=== PATIENT | male | born 1960 ===

== ENCOUNTER 2024-05-23 08:13 | Outpatient (BNV) | payer OTHER, SELFPAY | END 2024-05-27 15:19 | PROVIDERS: Admitting Provider Psychiatry & Neurology Psychiatry; Visit Provider Radiology Diagnostic Radiology | DX: F25.9 Schizoaffective disorder, unspecified (principal) | CPT/HCPCS: 70450 ==

== ENCOUNTER 2024-05-23 08:13 | Inpatient (IN) | payer OTHER, SELFPAY ==
--- NOTE | 2024-05-23 | ECG_ITS ---
Test Reason : monitor qtc Blood Pressure : */* mmHG Vent. Rate : 82 BPM Atrial Rate : 82 BPM P-R Int : 88 ms QRS Dur : 104 ms QT Int : 410 ms P-R-T Axes : 32 -34 57 degrees QTcB Int : 479 ms Sinus rhythm with sinus arrhythmia with short CT Left axis deviation Possible Inferior infarct , age undetermined Abnormal ECG No previous ECGs available Referred By: Shaun Mckeon Electronically Signed By: Colby Vigil
--- NOTE | ~2024-05-23 | CT_ITS ---
EXAMINATION: CT HEAD WITHOUT CONTRAST CLINICAL INFORMATION: Memory changes. COMPARISON: None available. TECHNIQUE: Contiguous axial imaging was performed from the skull base to vertex without intravenous administration of contrast. This CT examination was performed using dose optimization techniques as appropriate, variously including the following: *Automated exposure control *Adjustment of mA and/or kV according to patient size (this includes techniques or standardized protocols for targeted exams where dose is matched to indication/reason for exam; i.e. extremities or head) *Use of iterative reconstruction technique FINDINGS: There is no evidence of intracranial hemorrhage or extra-axial fluid collection. There is no mass effect, or edema. No CT evidence of acute territorial infarct. Ventricles, sulci, and cisterns are normal in size and configuration for patient age. No hydrocephalus. No midline shift. Negative hyperdense MCA sign. Negative insular ribbon sign. Patchy periventricular and deep white matter hypoattenuation is consistent with mild to moderate small vessel ischemic changes. Old lacunar type infarcts are present bilateral anterior gangliocapsular regions. Normal pituitary. Mild atheromatous calcification of the bilateral carotid siphons and V4 segments vertebral arteries bilaterally. Globes and orbital contents image normally. No extracranial soft tissue abnormalities. The paranasal sinuses, mastoid air cells, and tympanic cavities are normally aerated. No suspicious bony abnormalities. There are no acute fractures evident. CT/CT head/brain wo IV con IMPRESSION: No acute intracranial abnormalities. Chronic changes as discussed. Electronically signed by: Robbie Francisco MD 05/27/2024 04:01 PM [facility]
[2024-05-23 09:21] VITALS: BMI 19.5
--- NOTE | 2024-05-23 10:19 | PHA.MEDREC ---
Pharmacy Consult ? Medication Reconciliation Pharmacy has completed the medication reconciliation. Utilized med list from rehab center to complete med list.
[2024-05-23 10:55] LABS: Alanine Aminotransferase 16 U/L (0-40); Albumin Level 3.9 g/dL (3.5-5.0); Alkaline Phosphatase 105 U/L (39-117); Anion Gap 11 (12-20); Aspartate Amino Transferase 19 U/L (5-37); Bilirubin Total 0.2 mg/dL (0.0-1.0); Blood Urea Nitrogen 15 mg/dL (9-16); Calcium 9.8 mg/dL (8.4-10.2); Carbon Dioxide 26 mmol/L (22-29); Chloride 105 mmol/L (96-108); Cholesterol 133 mg/dL (<200); Creatinine Clr Calc Pharmacy 82.3; Estimated Glomerular Filt Rate > 60; Glucose Random 150 mg/dL (60-115); HDL Cholesterol 57 mg/dL (>40); LDL Cholesterol Calculated 64 mg/dL (<100); Potassium 4.3 mmol/L (3.3-5.1); Sodium 138 mmol/L (135-145); Total Protein 8.5 g/dL (6.5-8.0); Triglycerides 60 mg/dL (<150)
[2024-05-23 11:04] LABS: TSH reflex Free T4 1.07 uIU/mL (0.32-4.0)
[2024-05-23 11:20] LABS: Estimated Average Glucose 192 mg/dL; Hemoglobin A1C 199.7533 umol/L; Hemoglobin A1c % 8.3 % (<6.0); Total Hemoglobin (HGBA1C) 2978.2807 umol/L
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
[2024-05-23 17:31] LABS: Glucose, Whole Blood 313 mg/dL (60-115)
[2024-05-23] MEDS: Insulin Lispro 100 UNIT/ML 3 ML VIAL SUBCUT ×2 (17:46→21:46)
[2024-05-23 19:46] VITALS: BP 169/77; PULSE 97; RESP 16; TEMP 36.9; O2SAT 100
[2024-05-23 20:43] LABS: Glucose, Whole Blood 213 mg/dL (60-115)
[2024-05-23] MEDS: risperiDONE 1 MG TABLET PO (21:32)
[2024-05-23] MEDS: SITagliptin Phosphate 50 MG TABLET PO (21:32)
[2024-05-23] MEDS: Gabapentin 300 MG CAPSULE 600 MG PO (21:32)
[2024-05-23] MEDS: Mirtazapine 7.5 MG TABLET PO (21:32)
[2024-05-23] MEDS: cilostazoL 100 MG TABLET PO (21:33)
[2024-05-23] MEDS: metFORMIN HCl 1,000 MG TABLET 1000 MG PO (21:33)
[2024-05-23] MEDS: Docusate Sodium 100 MG CAPSULE PO (21:33)
[2024-05-23] MEDS: traZODone HCL 50 MG TABLET 250 MG PO (21:33)
[2024-05-24 08:17] LABS: Glucose, Whole Blood 204 mg/dL (60-115)
[2024-05-24 08:24] VITALS: BP 126/70; PULSE 79; TEMP 36.4; O2SAT 100
[2024-05-24] MEDS: Insulin Lispro 100 UNIT/ML 3 ML VIAL SUBCUT ×4 (08:30→20:28)
[2024-05-24] MEDS: Insulin Glargine,Hum.rec.anlog 100 UNIT/ML 10 ML VIAL 10 UNIT SUBCUT (08:30)
[2024-05-24] MEDS: Empagliflozin 25 MG TABLET PO (09:11)
[2024-05-24] MEDS: cilostazoL 100 MG TABLET PO ×2 (09:11→19:51)
[2024-05-24] MEDS: Gabapentin 300 MG CAPSULE PO (09:11)
[2024-05-24] MEDS: Sennosides 8.6 MG TABLET 17.2 MG PO (09:11)
[2024-05-24] MEDS: risperiDONE 1 MG TABLET PO ×2 (09:11→19:50)
[2024-05-24] MEDS: Atorvastatin Calcium 40 MG TABLET PO (09:11)
[2024-05-24] MEDS: metFORMIN HCl 1,000 MG TABLET 1000 MG PO ×2 (09:11→19:52)
[2024-05-24] MEDS: SITagliptin Phosphate 50 MG TABLET PO ×2 (09:11→19:51)
[2024-05-24] MEDS: polyethylene glycoL 3350 17 GM POWD.PACK PO (09:11)
[2024-05-24] MEDS: Docusate Sodium 100 MG CAPSULE PO ×2 (09:12→19:52)
[2024-05-24] MEDS: traZODone HCL 50 MG TABLET PO (09:54)
[2024-05-24] MEDS: glipiZIDE 5 MG TABLET PO (09:59)
[2024-05-24 11:43] LABS: Glucose, Whole Blood 264 mg/dL (60-115)
--- NOTE | 2024-05-24 13:36 | PC.NURSE ---
Pt transferred from M5 to S1, and arrived on the unit at 1330 via wheelchair. Pt is calm and cooperative. Skin check completed and nothing remarkable was observed.
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
[2024-05-24 16:40] LABS: Glucose, Whole Blood 156 mg/dL (60-115)
[2024-05-24] MEDS: Omeprazole 20 MG CAPSULE.DR PO (17:10)
[2024-05-24 19:02] VITALS: BP 133/76; PULSE 79; TEMP 36.6; O2SAT 100
[2024-05-24] MEDS: traZODone HCL 50 MG TABLET 250 MG PO (19:50)
[2024-05-24] MEDS: Gabapentin 300 MG CAPSULE 600 MG PO (19:51)
[2024-05-24] MEDS: Mirtazapine 7.5 MG TABLET PO (19:51)
[2024-05-24 20:10] LABS: Glucose, Whole Blood 251 mg/dL (60-115)
[2024-05-25 06:49] LABS: Glucose, Whole Blood 101 mg/dL (60-115)
--- NOTE | 2024-05-25 07:10 | PC.NURSE ---
Patient slept through the night, no distress observed/reported, meds and meals compliant, 5 minutes safety check, no behavior and safety concerns, will continue to monitor
[2024-05-25 08:00] VITALS: BP 144/68; PULSE 85; RESP 18; TEMP 36.4; O2SAT 100
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
[2024-05-25] MEDS: cilostazoL 100 MG TABLET PO ×2 (08:23→20:37)
[2024-05-25] MEDS: Sennosides 8.6 MG TABLET 17.2 MG PO (08:23)
[2024-05-25] MEDS: traZODone HCL 50 MG TABLET PO (08:24)
[2024-05-25] MEDS: Atorvastatin Calcium 40 MG TABLET PO (08:25)
[2024-05-25] MEDS: glipiZIDE 5 MG TABLET PO (08:25)
[2024-05-25] MEDS: metFORMIN HCl 1,000 MG TABLET 1000 MG PO ×2 (08:25→20:37)
[2024-05-25] MEDS: Empagliflozin 25 MG TABLET PO (08:25)
[2024-05-25] MEDS: risperiDONE 1 MG TABLET PO ×2 (08:25→20:37)
[2024-05-25] MEDS: Docusate Sodium 100 MG CAPSULE PO ×2 (08:25→20:44)
[2024-05-25] MEDS: Gabapentin 300 MG CAPSULE PO (08:25)
[2024-05-25] MEDS: SITagliptin Phosphate 50 MG TABLET PO ×2 (08:25→20:37)
[2024-05-25] MEDS: polyethylene glycoL 3350 17 GM POWD.PACK PO (08:27)
[2024-05-25] MEDS: Insulin Glargine,Hum.rec.anlog 100 UNIT/ML 10 ML VIAL 10 UNIT SUBCUT (08:55)
[2024-05-25 11:43] LABS: Glucose, Whole Blood 145 mg/dL (60-115)
[2024-05-25 16:15] LABS: Glucose, Whole Blood 177 mg/dL (60-115)
[2024-05-25] MEDS: Insulin Lispro 100 UNIT/ML 3 ML VIAL SUBCUT (16:18)
[2024-05-25 20:33] VITALS: BP 152/75; PULSE 81; RESP 16; TEMP 36.9; O2SAT 99
[2024-05-25] MEDS: Gabapentin 300 MG CAPSULE 600 MG PO (20:37)
[2024-05-25] MEDS: Mirtazapine 7.5 MG TABLET PO (20:37)
[2024-05-25 20:42] LABS: Glucose, Whole Blood 126 mg/dL (60-115)
[2024-05-25] MEDS: traZODone HCL 50 MG TABLET 250 MG PO (20:44)
[2024-05-26 06:41] LABS: Glucose, Whole Blood 126 mg/dL (60-115)
[2024-05-26] MEDS: Insulin Glargine,Hum.rec.anlog 100 UNIT/ML 10 ML VIAL 10 UNIT SUBCUT (08:59)
[2024-05-26] MEDS: Empagliflozin 25 MG TABLET PO (09:01)
[2024-05-26] MEDS: glipiZIDE 5 MG TABLET PO (09:01)
[2024-05-26] MEDS: metFORMIN HCl 1,000 MG TABLET 1000 MG PO ×2 (09:01→20:09)
[2024-05-26] MEDS: Gabapentin 300 MG CAPSULE PO (09:01)
[2024-05-26] MEDS: Sennosides 8.6 MG TABLET 17.2 MG PO (09:02)
[2024-05-26] MEDS: cilostazoL 100 MG TABLET PO ×2 (09:02→20:08)
[2024-05-26] MEDS: Docusate Sodium 100 MG CAPSULE PO ×2 (09:02→20:08)
[2024-05-26] MEDS: SITagliptin Phosphate 50 MG TABLET PO ×2 (09:02→20:09)
[2024-05-26] MEDS: risperiDONE 1 MG TABLET PO ×2 (09:03→20:08)
[2024-05-26] MEDS: traZODone HCL 50 MG TABLET PO (09:03)
[2024-05-26] MEDS: Atorvastatin Calcium 40 MG TABLET PO (09:03)
[2024-05-26 09:04] VITALS: BP 127/68; PULSE 95; RESP 18; TEMP 36.4; O2SAT 100
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
[2024-05-26 11:15] LABS: Glucose, Whole Blood 222 mg/dL (60-115)
[2024-05-26] MEDS: Insulin Lispro 100 UNIT/ML 3 ML VIAL SUBCUT ×2 (11:51→16:33)
[2024-05-26 16:24] LABS: Glucose, Whole Blood 165 mg/dL (60-115)
[2024-05-26 20:00] VITALS: BP 155/71; PULSE 74; RESP 18; TEMP 36; O2SAT 100
[2024-05-26 20:08] LABS: Glucose, Whole Blood 145 mg/dL (60-115)
[2024-05-26] MEDS: traZODone HCL 50 MG TABLET 250 MG PO (20:08)
[2024-05-26] MEDS: Gabapentin 300 MG CAPSULE 600 MG PO (20:08)
[2024-05-26] MEDS: Mirtazapine 7.5 MG TABLET PO (20:09)
[2024-05-27 06:43] LABS: Glucose, Whole Blood 112 mg/dL (60-115)
[2024-05-27] MEDS: Omeprazole 20 MG CAPSULE.DR PO (06:55)
[2024-05-27 08:00] VITALS: BP 123/58; PULSE 82; RESP 16; TEMP 36.2; O2SAT 99
[2024-05-27] MEDS: polyethylene glycoL 3350 17 GM POWD.PACK PO (09:01)
[2024-05-27] MEDS: Gabapentin 300 MG CAPSULE PO (09:01)
[2024-05-27] MEDS: glipiZIDE 5 MG TABLET PO (09:02)
[2024-05-27] MEDS: Atorvastatin Calcium 40 MG TABLET PO (09:02)
[2024-05-27] MEDS: Empagliflozin 25 MG TABLET PO (09:02)
[2024-05-27] MEDS: cilostazoL 100 MG TABLET PO ×2 (09:02→21:06)
[2024-05-27] MEDS: Sennosides 8.6 MG TABLET 17.2 MG PO (09:02)
[2024-05-27] MEDS: risperiDONE 1 MG TABLET PO (09:02)
[2024-05-27] MEDS: metFORMIN HCl 1,000 MG TABLET 1000 MG PO ×2 (09:02→21:07)
[2024-05-27] MEDS: SITagliptin Phosphate 50 MG TABLET PO ×2 (09:02→21:05)
[2024-05-27] MEDS: Docusate Sodium 100 MG CAPSULE PO ×2 (09:02→21:06)
[2024-05-27] MEDS: traZODone HCL 50 MG TABLET PO (09:02)
[2024-05-27] MEDS: Insulin Glargine,Hum.rec.anlog 100 UNIT/ML 10 ML VIAL 10 UNIT SUBCUT (09:02)
[2024-05-27 11:39] LABS: Glucose, Whole Blood 203 mg/dL (60-115)
[2024-05-27] MEDS: Insulin Lispro 100 UNIT/ML 3 ML VIAL SUBCUT ×2 (11:48→21:08)
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
[2024-05-27 14:35] LABS: Iron 18 mcg/dL (45-160); Percent Iron Saturation 6 % (15-50); Total Iron Binding Capacity 286 mcg/dL (228-428); Unsaturated Iron Binding 268 ug/dL
[2024-05-27 16:48] LABS: Glucose, Whole Blood 116 mg/dL (60-115)
[2024-05-27 20:00] VITALS: BP 163/79; PULSE 77; RESP 16; TEMP 36.6; O2SAT 16
[2024-05-27] MEDS: Mirtazapine 7.5 MG TABLET PO (21:04)
[2024-05-27] MEDS: Gabapentin 300 MG CAPSULE 600 MG PO (21:04)
[2024-05-27] MEDS: traZODone HCL 100 MG TABLET PO (21:04)
[2024-05-27 21:06] LABS: Glucose, Whole Blood 228 mg/dL (60-115)
[2024-05-27] MEDS: risperiDONE 2 MG TABLET PO (21:58)
[2024-05-27] MEDS: LORazepam 1 MG TABLET PO (22:35)
[2024-05-27] MEDS: HaloperidoL 5 MG TABLET PO (22:35)
[2024-05-28 06:54] LABS: Glucose, Whole Blood 122 mg/dL (60-115)
[2024-05-28 08:00] VITALS: BP 153/68; PULSE 81; RESP 17; TEMP 36.2; O2SAT 98
[2024-05-28] MEDS: cilostazoL 100 MG TABLET PO ×2 (08:23→20:20)
[2024-05-28] MEDS: Docusate Sodium 100 MG CAPSULE PO ×2 (08:23→20:21)
[2024-05-28] MEDS: Empagliflozin 25 MG TABLET PO (08:23)
[2024-05-28] MEDS: polyethylene glycoL 3350 17 GM POWD.PACK PO (08:23)
[2024-05-28] MEDS: glipiZIDE 5 MG TABLET PO (08:23)
[2024-05-28] MEDS: metFORMIN HCl 1,000 MG TABLET 1000 MG PO ×2 (08:23→20:20)
[2024-05-28] MEDS: SITagliptin Phosphate 50 MG TABLET PO ×2 (08:23→20:20)
[2024-05-28] MEDS: risperiDONE 2 MG TABLET PO ×2 (08:23→20:20)
[2024-05-28] MEDS: Gabapentin 300 MG CAPSULE PO (08:23)
[2024-05-28] MEDS: Sennosides 8.6 MG TABLET 17.2 MG PO (08:23)
[2024-05-28] MEDS: Atorvastatin Calcium 40 MG TABLET PO (08:23)
[2024-05-28] MEDS: Insulin Glargine,Hum.rec.anlog 100 UNIT/ML 10 ML VIAL 10 UNIT SUBCUT (08:24)
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
[2024-05-28 11:41] LABS: Glucose, Whole Blood 226 mg/dL (60-115)
[2024-05-28] MEDS: Insulin Lispro 100 UNIT/ML 3 ML VIAL SUBCUT ×2 (11:54→20:19)
[2024-05-28 16:08] LABS: Glucose, Whole Blood 121 mg/dL (60-115)
[2024-05-28 19:55] LABS: Glucose, Whole Blood 245 mg/dL (60-115)
[2024-05-28 20:00] VITALS: BP 150/76; PULSE 96; TEMP 36.6; O2SAT 100
[2024-05-28] MEDS: Gabapentin 300 MG CAPSULE 600 MG PO (20:20)
[2024-05-28] MEDS: traZODone HCL 100 MG TABLET PO (20:20)
[2024-05-29] MEDS: Omeprazole 20 MG CAPSULE.DR PO (05:09)
[2024-05-29 06:38] LABS: Glucose, Whole Blood 95 mg/dL (60-115)
[2024-05-29] MEDS: Empagliflozin 25 MG TABLET PO (08:11)
[2024-05-29] MEDS: Atorvastatin Calcium 40 MG TABLET PO (08:11)
[2024-05-29] MEDS: SITagliptin Phosphate 50 MG TABLET PO ×2 (08:11→20:01)
[2024-05-29] MEDS: metFORMIN HCl 1,000 MG TABLET 1000 MG PO ×2 (08:11→20:01)
[2024-05-29] MEDS: polyethylene glycoL 3350 17 GM POWD.PACK PO (08:11)
[2024-05-29] MEDS: Sennosides 8.6 MG TABLET 17.2 MG PO (08:11)
[2024-05-29] MEDS: glipiZIDE 5 MG TABLET PO (08:11)
[2024-05-29] MEDS: Docusate Sodium 100 MG CAPSULE PO ×2 (08:11→20:01)
[2024-05-29] MEDS: risperiDONE 2 MG TABLET PO ×2 (08:11→20:01)
[2024-05-29] MEDS: Gabapentin 300 MG CAPSULE PO (08:11)
[2024-05-29] MEDS: Insulin Glargine,Hum.rec.anlog 100 UNIT/ML 10 ML VIAL 10 UNIT SUBCUT (08:14)
[2024-05-29] MEDS: cilostazoL 100 MG TABLET PO ×2 (08:16→20:01)
[2024-05-29 08:18] VITALS: BP 140/76; PULSE 76; RESP 16; TEMP 36.6; O2SAT 96
[2024-05-29 11:22] LABS: Glucose, Whole Blood 85 mg/dL (60-115)
[2024-05-29 16:37] LABS: Glucose, Whole Blood 175 mg/dL (60-115)
[2024-05-29] MEDS: Insulin Lispro 100 UNIT/ML 3 ML VIAL SUBCUT (16:41)
[2024-05-29] MEDS: Gabapentin 300 MG CAPSULE 600 MG PO (20:01)
[2024-05-29] MEDS: traZODone HCL 100 MG TABLET PO (20:01)
[2024-05-29 20:03] LABS: Glucose, Whole Blood 141 mg/dL (60-115)
[2024-05-29 23:13] VITALS: BP 149/72; PULSE 77; RESP 16; TEMP 36.4; O2SAT 100
[2024-05-30 06:42] LABS: Glucose, Whole Blood 66 mg/dL (60-115)
[2024-05-30 06:59] LABS: Glucose, Whole Blood 97 mg/dL (60-115)
[2024-05-30 08:54] VITALS: BP 139/68; PULSE 80; RESP 20; TEMP 36.5; O2SAT 100
[2024-05-30] MEDS: metFORMIN HCl 1,000 MG TABLET 1000 MG PO ×2 (08:59→20:23)
[2024-05-30] MEDS: Sennosides 8.6 MG TABLET 17.2 MG PO (09:00)
[2024-05-30] MEDS: SITagliptin Phosphate 50 MG TABLET PO ×2 (09:00→20:23)
[2024-05-30] MEDS: glipiZIDE 5 MG TABLET PO (09:00)
[2024-05-30] MEDS: risperiDONE 2 MG TABLET PO ×2 (09:00→20:23)
[2024-05-30] MEDS: Docusate Sodium 100 MG CAPSULE PO ×2 (09:02→20:23)
[2024-05-30] MEDS: Gabapentin 300 MG CAPSULE PO (09:03)
[2024-05-30] MEDS: Empagliflozin 25 MG TABLET PO (09:03)
[2024-05-30] MEDS: Insulin Glargine,Hum.rec.anlog 100 UNIT/ML 10 ML VIAL 10 UNIT SUBCUT (09:04)
[2024-05-30] MEDS: polyethylene glycoL 3350 17 GM POWD.PACK PO (09:05)
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
[2024-05-30 10:15] LABS: Creatinine Clr Calc Pharmacy 78.5; Estimated Glomerular Filt Rate > 60
[2024-05-30] MEDS: Atorvastatin Calcium 40 MG TABLET PO (10:19)
[2024-05-30] MEDS: cilostazoL 100 MG TABLET PO ×2 (10:19→20:23)
[2024-05-30 11:16] LABS: Glucose, Whole Blood 180 mg/dL (60-115)
[2024-05-30] MEDS: Insulin Lispro 100 UNIT/ML 3 ML VIAL SUBCUT ×3 (11:18→20:24)
[2024-05-30 14:25] VITALS: BMI 19.1
[2024-05-30 16:35] LABS: Glucose, Whole Blood 161 mg/dL (60-115)
[2024-05-30 19:35] VITALS: BP 160/110; PULSE 96; TEMP 35.3; O2SAT 100
[2024-05-30 20:00] VITALS: BP 169/74; PULSE 83
[2024-05-30 20:00] LABS: Glucose, Whole Blood 264 mg/dL (60-115)
[2024-05-30] MEDS: Gabapentin 300 MG CAPSULE 600 MG PO (20:23)
[2024-05-30] MEDS: traZODone HCL 100 MG TABLET PO (20:23)
[2024-05-30] MEDS: OLANZapine 2.5 MG TABLET PO (22:48)
[2024-05-31] MEDS: Omeprazole 20 MG CAPSULE.DR PO (05:40)
[2024-05-31 06:46] LABS: Glucose, Whole Blood 122 mg/dL (60-115)
[2024-05-31 08:24] VITALS: BP 120/57; PULSE 81; RESP 18; TEMP 36.9; O2SAT 100
[2024-05-31] MEDS: Sennosides 8.6 MG TABLET 17.2 MG PO (08:27)
[2024-05-31] MEDS: cilostazoL 100 MG TABLET PO ×2 (08:28→22:35)
[2024-05-31] MEDS: polyethylene glycoL 3350 17 GM POWD.PACK PO (08:28)
[2024-05-31] MEDS: Atorvastatin Calcium 40 MG TABLET PO (08:28)
[2024-05-31] MEDS: metFORMIN HCl 1,000 MG TABLET 1000 MG PO ×2 (08:28→22:38)
[2024-05-31] MEDS: risperiDONE 2 MG TABLET PO ×2 (08:28→22:38)
[2024-05-31] MEDS: Gabapentin 300 MG CAPSULE PO (08:28)
[2024-05-31] MEDS: Docusate Sodium 100 MG CAPSULE PO ×2 (08:28→22:35)
[2024-05-31] MEDS: Empagliflozin 25 MG TABLET PO (08:28)
[2024-05-31] MEDS: SITagliptin Phosphate 50 MG TABLET PO ×2 (08:28→22:39)
[2024-05-31] MEDS: glipiZIDE 5 MG TABLET PO (08:28)
[2024-05-31] MEDS: Insulin Glargine,Hum.rec.anlog 100 UNIT/ML 10 ML VIAL 10 UNIT SUBCUT (08:28)
[2024-05-31 11:13] LABS: Glucose, Whole Blood 247 mg/dL (60-115)
[2024-05-31] MEDS: Insulin Lispro 100 UNIT/ML 3 ML VIAL SUBCUT ×2 (11:36→22:37)
[2024-05-31 16:18] LABS: Glucose, Whole Blood 111 mg/dL (60-115)
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
[2024-05-31 20:00] VITALS: BP 147/71; PULSE 80; RESP 16; TEMP 36; O2SAT 98
[2024-05-31 22:28] LABS: Glucose, Whole Blood 209 mg/dL (60-115)
[2024-05-31] MEDS: Gabapentin 300 MG CAPSULE 600 MG PO (22:35)
[2024-05-31] MEDS: HaloperidoL 5 MG TABLET PO (22:36)
[2024-05-31] MEDS: LORazepam 1 MG TABLET PO (22:38)
[2024-05-31] MEDS: traZODone HCL 100 MG TABLET PO (22:41)
[2024-06-01 06:43] LABS: Glucose, Whole Blood 108 mg/dL (60-115)
[2024-06-01 08:00] VITALS: BP 124/60; PULSE 87; RESP 18; TEMP 36.5; O2SAT 99
[2024-06-01] MEDS: Empagliflozin 25 MG TABLET PO (08:35)
[2024-06-01] MEDS: Atorvastatin Calcium 40 MG TABLET PO (08:36)
[2024-06-01] MEDS: Insulin Glargine,Hum.rec.anlog 100 UNIT/ML 10 ML VIAL 10 UNIT SUBCUT (08:36)
[2024-06-01] MEDS: Docusate Sodium 100 MG CAPSULE PO ×2 (08:37→20:28)
[2024-06-01] MEDS: glipiZIDE 5 MG TABLET PO (08:37)
[2024-06-01] MEDS: Sennosides 8.6 MG TABLET 17.2 MG PO (08:38)
[2024-06-01] MEDS: risperiDONE 2 MG TABLET PO ×2 (08:39→20:29)
[2024-06-01] MEDS: cilostazoL 100 MG TABLET PO ×2 (08:39→20:29)
[2024-06-01] MEDS: metFORMIN HCl 1,000 MG TABLET 1000 MG PO ×2 (08:40→20:29)
[2024-06-01] MEDS: SITagliptin Phosphate 50 MG TABLET PO ×2 (08:40→20:29)
[2024-06-01] MEDS: Acetaminophen 325 MG TABLET 650 MG PO (08:41)
[2024-06-01] MEDS: Gabapentin 300 MG CAPSULE PO (08:45)
[2024-06-01] MEDS: polyethylene glycoL 3350 17 GM POWD.PACK PO (08:46)
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
[2024-06-01 11:37] LABS: Glucose, Whole Blood 175 mg/dL (60-115)
[2024-06-01] MEDS: Insulin Lispro 100 UNIT/ML 3 ML VIAL SUBCUT ×3 (11:45→20:36)
[2024-06-01] MEDS: Lipase/Prot/Amylase 12/38/60K CAPSULE.DR 1 CAP PO (16:43)
[2024-06-01 20:00] VITALS: BP 160/76; PULSE 81; RESP 16; TEMP 36.6; O2SAT 98
[2024-06-01 20:14] LABS: Glucose, Whole Blood 169 mg/dL (60-115)
[2024-06-01] MEDS: Gabapentin 300 MG CAPSULE 600 MG PO (20:28)
[2024-06-01] MEDS: traZODone HCL 100 MG TABLET PO (20:29)
[2024-06-01] MEDS: LORazepam 1 MG TABLET PO (20:29)
[2024-06-01] MEDS: HaloperidoL 5 MG TABLET PO (20:29)
[2024-06-01 21:16] LABS: Glucose, Whole Blood 157 mg/dL (60-115)
[2024-06-02 07:00] LABS: Glucose, Whole Blood 96 mg/dL (60-115)
[2024-06-02 08:00] VITALS: BP 111/65; PULSE 65; RESP 18; TEMP 36.7; O2SAT 99
[2024-06-02] MEDS: Atorvastatin Calcium 40 MG TABLET PO (08:15)
[2024-06-02] MEDS: cilostazoL 100 MG TABLET PO ×2 (08:15→20:50)
[2024-06-02] MEDS: metFORMIN HCl 1,000 MG TABLET 1000 MG PO ×2 (08:15→20:50)
[2024-06-02] MEDS: Gabapentin 300 MG CAPSULE PO (08:15)
[2024-06-02] MEDS: risperiDONE 2 MG TABLET PO ×2 (08:15→20:49)
[2024-06-02] MEDS: glipiZIDE 5 MG TABLET PO (08:16)
[2024-06-02] MEDS: Docusate Sodium 100 MG CAPSULE PO ×2 (08:16→20:49)
[2024-06-02] MEDS: Lipase/Prot/Amylase 12/38/60K CAPSULE.DR 1 CAP PO ×3 (08:16→16:59)
[2024-06-02] MEDS: Empagliflozin 25 MG TABLET PO (08:16)
[2024-06-02] MEDS: SITagliptin Phosphate 50 MG TABLET PO ×2 (08:16→20:49)
[2024-06-02] MEDS: Insulin Glargine,Hum.rec.anlog 100 UNIT/ML 10 ML VIAL 10 UNIT SUBCUT (08:17)
[2024-06-02] MEDS: Sennosides 8.6 MG TABLET 17.2 MG PO (08:17)
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
[2024-06-02 11:33] LABS: Glucose, Whole Blood 165 mg/dL (60-115)
[2024-06-02] MEDS: Insulin Lispro 100 UNIT/ML 3 ML VIAL SUBCUT ×2 (11:41→20:51)
[2024-06-02 16:39] LABS: Glucose, Whole Blood 101 mg/dL (60-115)
[2024-06-02 19:02] LABS: Glucose, Whole Blood 194 mg/dL (60-115)
[2024-06-02 19:27] VITALS: BP 147/72; PULSE 77; RESP 16; TEMP 36.9; O2SAT 99
[2024-06-02] MEDS: LORazepam 1 MG TABLET PO (20:49)
[2024-06-02] MEDS: traZODone HCL 100 MG TABLET PO (20:49)
[2024-06-02] MEDS: Gabapentin 300 MG CAPSULE 600 MG PO (20:49)
[2024-06-02] MEDS: HaloperidoL 5 MG TABLET PO (20:50)
[2024-06-03] MEDS: Omeprazole 20 MG CAPSULE.DR PO (06:13)
[2024-06-03 07:02] LABS: Glucose, Whole Blood 85 mg/dL (60-115)
[2024-06-03 08:00] VITALS: BP 132/62; PULSE 76; RESP 16; TEMP 36.6; O2SAT 98
[2024-06-03] MEDS: Lipase/Prot/Amylase 12/38/60K CAPSULE.DR 1 CAP PO ×3 (08:46→16:42)
[2024-06-03] MEDS: Insulin Glargine,Hum.rec.anlog 100 UNIT/ML 10 ML VIAL 10 UNIT SUBCUT (08:46)
[2024-06-03] MEDS: cilostazoL 100 MG TABLET PO ×2 (08:47→19:43)
[2024-06-03] MEDS: risperiDONE 2 MG TABLET PO ×2 (08:48→19:42)
[2024-06-03] MEDS: glipiZIDE 5 MG TABLET PO (08:48)
[2024-06-03] MEDS: Docusate Sodium 100 MG CAPSULE PO ×2 (08:48→19:42)
[2024-06-03] MEDS: Atorvastatin Calcium 40 MG TABLET PO (08:48)
[2024-06-03] MEDS: SITagliptin Phosphate 50 MG TABLET PO ×2 (08:49→19:42)
[2024-06-03] MEDS: metFORMIN HCl 1,000 MG TABLET 1000 MG PO ×2 (08:50→19:43)
[2024-06-03] MEDS: Sennosides 8.6 MG TABLET 17.2 MG PO (08:50)
[2024-06-03] MEDS: Gabapentin 300 MG CAPSULE PO (08:51)
[2024-06-03] MEDS: Empagliflozin 25 MG TABLET PO (08:57)
[2024-06-03] MEDS: polyethylene glycoL 3350 17 GM POWD.PACK PO (08:59)
[2024-06-03 11:39] LABS: Glucose, Whole Blood 128 mg/dL (60-115)
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
[2024-06-03 16:21] LABS: Glucose, Whole Blood 226 mg/dL (60-115)
[2024-06-03] MEDS: Insulin Lispro 100 UNIT/ML 3 ML VIAL SUBCUT ×2 (16:41→19:43)
[2024-06-03 19:18] LABS: Glucose, Whole Blood 258 mg/dL (60-115)
[2024-06-03] MEDS: Gabapentin 300 MG CAPSULE 600 MG PO (19:42)
[2024-06-03] MEDS: traZODone HCL 100 MG TABLET PO (19:42)
[2024-06-03] MEDS: LORazepam 1 MG TABLET PO (19:43)
[2024-06-03] MEDS: HaloperidoL 5 MG TABLET PO (19:43)
[2024-06-03 20:00] VITALS: BP 157/74; PULSE 73; RESP 16; TEMP 37; O2SAT 100
[2024-06-04 06:46] LABS: Glucose, Whole Blood 114 mg/dL (60-115)
[2024-06-04 08:00] VITALS: BP 154/72; PULSE 86; RESP 20; TEMP 36.9; O2SAT 98
[2024-06-04] MEDS: risperiDONE 2 MG TABLET PO ×2 (08:40→19:44)
[2024-06-04] MEDS: Lipase/Prot/Amylase 12/38/60K CAPSULE.DR 1 CAP PO ×3 (08:40→17:01)
[2024-06-04] MEDS: Empagliflozin 25 MG TABLET PO (08:40)
[2024-06-04] MEDS: Sennosides 8.6 MG TABLET 17.2 MG PO (08:41)
[2024-06-04] MEDS: cilostazoL 100 MG TABLET PO ×2 (08:41→19:43)
[2024-06-04] MEDS: Atorvastatin Calcium 40 MG TABLET PO (08:41)
[2024-06-04] MEDS: Docusate Sodium 100 MG CAPSULE PO ×2 (08:41→19:44)
[2024-06-04] MEDS: Gabapentin 300 MG CAPSULE PO (08:42)
[2024-06-04] MEDS: glipiZIDE 5 MG TABLET PO (08:42)
[2024-06-04] MEDS: SITagliptin Phosphate 50 MG TABLET PO ×2 (08:42→19:44)
[2024-06-04] MEDS: Insulin Glargine,Hum.rec.anlog 100 UNIT/ML 10 ML VIAL 10 UNIT SUBCUT (08:42)
[2024-06-04] MEDS: metFORMIN HCl 1,000 MG TABLET 1000 MG PO ×2 (08:42→19:44)
[2024-06-04 11:28] LABS: Glucose, Whole Blood 242 mg/dL (60-115)
[2024-06-04] MEDS: Insulin Lispro 100 UNIT/ML 3 ML VIAL SUBCUT ×2 (11:38→21:05)
[2024-06-04] MEDS: Tetrahydrozoline HCl 0.05% Oph 15 ML DRPBTL 1 DROP EYE-BOTH (12:16)
[2024-06-04] MEDS: OLANZapine 2.5 MG TABLET PO (12:56)
[2024-06-04 16:40] LABS: Glucose, Whole Blood 79 mg/dL (60-115)
[2024-06-04 19:41] VITALS: BP 157/74; PULSE 72; RESP 16; TEMP 36.3; O2SAT 100
[2024-06-04] MEDS: LORazepam 1 MG TABLET PO (19:43)
[2024-06-04] MEDS: HaloperidoL 5 MG TABLET PO (19:44)
[2024-06-04] MEDS: traZODone HCL 100 MG TABLET PO (19:44)
[2024-06-04] MEDS: Gabapentin 300 MG CAPSULE 600 MG PO (19:45)
[2024-06-04 20:57] LABS: Glucose, Whole Blood 185 mg/dL (60-115)
[2024-06-05] MEDS: Omeprazole 20 MG CAPSULE.DR PO (06:40)
[2024-06-05 06:49] LABS: Glucose, Whole Blood 131 mg/dL (60-115)
[2024-06-05 08:00] VITALS: BP 132/66; PULSE 82; RESP 18; TEMP 36.8; O2SAT 82
[2024-06-05] MEDS: Insulin Glargine,Hum.rec.anlog 100 UNIT/ML 10 ML VIAL 10 UNIT SUBCUT (08:21)
[2024-06-05] MEDS: metFORMIN HCl 1,000 MG TABLET 1000 MG PO ×2 (08:22→20:50)
[2024-06-05] MEDS: risperiDONE 2 MG TABLET PO ×2 (08:22→20:50)
[2024-06-05] MEDS: Atorvastatin Calcium 40 MG TABLET PO (08:22)
[2024-06-05] MEDS: cilostazoL 100 MG TABLET PO ×2 (08:22→20:43)
[2024-06-05] MEDS: SITagliptin Phosphate 50 MG TABLET PO ×2 (08:22→20:51)
[2024-06-05] MEDS: glipiZIDE 5 MG TABLET PO (08:22)
[2024-06-05] MEDS: polyethylene glycoL 3350 17 GM POWD.PACK PO (08:23)
[2024-06-05] MEDS: Empagliflozin 25 MG TABLET PO (08:23)
[2024-06-05] MEDS: Sennosides 8.6 MG TABLET 17.2 MG PO (08:23)
[2024-06-05] MEDS: Lipase/Prot/Amylase 12/38/60K CAPSULE.DR 1 CAP PO ×3 (08:23→16:39)
[2024-06-05] MEDS: Docusate Sodium 100 MG CAPSULE PO ×2 (08:23→20:48)
[2024-06-05] MEDS: Gabapentin 300 MG CAPSULE PO (08:23)
[2024-06-05] MEDS: Tetrahydrozoline HCl 0.05% Oph 15 ML DRPBTL 1 DROP EYE-BOTH (08:30)
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
[2024-06-05 11:06] LABS: Glucose, Whole Blood 180 mg/dL (60-115)
[2024-06-05] MEDS: Insulin Lispro 100 UNIT/ML 3 ML VIAL SUBCUT ×2 (11:28→20:49)
[2024-06-05 16:42] LABS: Glucose, Whole Blood 112 mg/dL (60-115)
[2024-06-05 20:00] VITALS: BP 136/65; PULSE 75; RESP 6; TEMP 36.9; O2SAT 100
[2024-06-05] MEDS: Gabapentin 300 MG CAPSULE 600 MG PO (20:49)
[2024-06-05] MEDS: HaloperidoL 5 MG TABLET PO (20:49)
[2024-06-05] MEDS: LORazepam 1 MG TABLET PO (20:50)
[2024-06-05] MEDS: traZODone HCL 100 MG TABLET PO (20:51)
[2024-06-05] MEDS: Magnesium Hydrox/Alum Hydrox 30 ML ORAL.SUSP PO (20:53)
[2024-06-05 21:33] LABS: Glucose, Whole Blood 271 mg/dL (60-115)
[2024-06-06 06:49] LABS: Glucose, Whole Blood 96 mg/dL (60-115)
[2024-06-06] MEDS: Sennosides 8.6 MG TABLET 17.2 MG PO (08:03)
[2024-06-06] MEDS: cilostazoL 100 MG TABLET PO (08:03)
[2024-06-06] MEDS: Docusate Sodium 100 MG CAPSULE PO (08:03)
[2024-06-06] MEDS: Gabapentin 300 MG CAPSULE PO (08:04)
[2024-06-06] MEDS: Lipase/Prot/Amylase 12/38/60K CAPSULE.DR 1 CAP PO (08:04)
[2024-06-06] MEDS: Empagliflozin 25 MG TABLET PO (08:04)
[2024-06-06] MEDS: risperiDONE 2 MG TABLET PO (08:04)
[2024-06-06] MEDS: Atorvastatin Calcium 40 MG TABLET PO (08:04)
[2024-06-06] MEDS: glipiZIDE 5 MG TABLET PO (08:04)
[2024-06-06] MEDS: metFORMIN HCl 1,000 MG TABLET 1000 MG PO (08:04)
[2024-06-06] MEDS: Insulin Glargine,Hum.rec.anlog 100 UNIT/ML 10 ML VIAL 10 UNIT SUBCUT (08:04)
[2024-06-06] MEDS: SITagliptin Phosphate 50 MG TABLET PO (08:04)
[2024-06-06] MEDS: polyethylene glycoL 3350 17 GM POWD.PACK PO (08:05)
[2024-06-06 09:07] LABS: Creatinine Clr Calc Pharmacy 82.9; Estimated Glomerular Filt Rate > 60
--- NOTE | 2024-06-06 09:48 | PM.PSYDC ---
DS: Providers Provider Date of Service: 06/06/24 Date of admission: 05/23/24 08:13 Date of discharge: 06/06/24 Primary care physician: None Physician Consults: 05/23/24 09:37 Consult to Hospitalist Routine Comment: [place]ing Provider: [facility] [place] For Exam: admission physical DS: Diagnosis Discharge Diagnosis (1) Schizoaffective disorder: Status: Acute DS: Medications Discharge Medications Home Medications: Home Medications ?Medication ?Instructions ?Recorded ?Confirmed acetaminophen 325 mg tablet 650 mg PO Q6H PRN Pain 05/23/24 05/23/24 aluminum-mag hydroxide-simethicone 30 ml PO Q4H PRN Stomach Upset 05/23/24 05/23/24 200 mg-200 mg-20 mg/5 mL oral susp bisacodyl 10 mg rectal suppository 10 mg NJ DAILY PRN Constipation 05/23/24 05/23/24 docusate sodium 100 mg capsule 100 mg PO BID 05/23/24 05/23/24 empagliflozin 25 mg tablet 25 mg PO DAILY 05/23/24 05/23/24 (Jardiance) glipizide 10 mg tablet 5 mg PO DAILY 05/23/24 05/23/24 insulin aspart U-100 100 unit/mL See Protocol subcut TIDAC 05/23/24 05/23/24 subcutaneous solution (Novolog U-100 Insulin aspart) insulin glargine 100 unit/mL 10 unit subcut DAILY 05/23/24 05/23/24 subcutaneous solution (Lantus U-100 Insulin) qglfbe-zhxswjji-hmkhwhx 2 cap PO TID 05/23/24 05/23/24 3,000-9,500-15,000 unit capsule, delayed rel (Creon) magnesium hydroxide 400 mg/5 mL 30 ml PO DAILY PRN Constipation 05/23/24 05/23/24 oral suspension (Milk of Magnesia) naloxone 4 mg/actuation nasal spray 4 mg intranasal Q2M PRN Opioid 05/23/24 05/23/24 Overdose ondansetron 4 mg disintegrating 4 mg PO Q6H PRN Nausea And Vomiting 05/23/24 05/23/24 tablet pantoprazole 40 mg tablet,delayed 40 mg PO MOWEFR 05/23/24 05/23/24 release polyethylene glycol 3350 17 gram 17 g PO DAILY 05/23/24 05/23/24 oral powder packet sennosides 8.6 mg tablet (senna) 17.2 mg PO DAILY 05/23/24 05/23/24 sodium phosphates 19 gram-7 118 ml NJ DAILY PRN Constipation 05/23/24 05/23/24 gram/118 mL enema (Fleet Enema) Previous Rx's ?Medication ?Instructions ?Recorded atorvastatin 40 mg tablet 40 mg PO DAILY 30 days #30 tabs 06/05/24 cilostazol 100 mg tablet 100 mg PO BID 30 days #60 tabs 06/05/24 gabapentin 300 mg capsule 300 mg PO DAILY 30 days #30 caps 06/05/24 gabapentin 300 mg capsule 300 mg PO DAILY PRN Neuropathy 30 06/05/24 days #30 caps gabapentin 300 mg capsule 600 mg (2 x 300 mg) PO BEDTIME 30 06/05/24 days #60 caps haloperidol 5 mg tablet 5 mg PO BEDTIME 30 days #30 tabs 06/05/24 lorazepam 1 mg tablet 1 mg PO BEDTIME 30 days #30 tabs 06/05/24 olanzapine 2.5 mg tablet 2.5 mg PO TID PRN agitation 30 06/05/24 days #90 tabs risperidone 2 mg tablet 2 mg PO BID 30 days #60 tabs 06/05/24 sitagliptin phosphate 50 1 tab PO BID 30 days #30 tabs 06/05/24 mg-metformin 1,000 mg tablet (Janumet) Mental Status Exam Mental Status Exam Narrative: Appearance: wearing hospital gown, fair hygiene, in NAD Behavior: cooperative Psychomotor: no retardation noted Speech: mumbles at times, regular rate, spontaneous TP: some derailment at times very concrete TC: feeling better asking when he can leave Mood: ok some anxiety about discharge Affect: congruent, some anxiety SI: denies HI: none VH/AH: denies Delusions: no overt delusional content Insight/judgment: impaired x 2. Memory/cog: alert, oriented to idea that he is in the hospital but not city or name of hospital. MOCA- 08/14, ACL 4.2 from prior Data Data Completed and Pending Completed studies during hospitalization [Text1]: RUN: 06/10/24 9737 PAGE 1 [facility] [address] [place] [id number] Bank Appraiser: Brian Gr M.D. Specimen Inquiry Name: Perez Juarez Age/Sex: 64/M : 1960 Unit#: [id number] Attend Dr: Ivette Green BARREL COOPER Re05/23/24 Status: DIS IN Location: [place] [address]-2 Disch: 06/06/24 SPEC : [id number] SHANNAN: 05/23/24 STATUS: COMP REQ : [id number] RECD: 05/23/[address]: Shaun Mckeon MD COMP: 05/23/24 ENTERED: 05/23/[address]: Physician,None ORDERED: CMP, Lipid Panel, TSH Rflx Test Result Flag Reference Sodium 138 135-145 mmol/L Potassium 4.3 3.3-5.1 mmol/L CL 105 96-108 mmol/L CO2 26 22-29 mmol/L Gap 11 L 12-20 BUN 15 9-16 mg/dL Creat 0.81 0.5-1.4 mg/dL Estimated CrCl 82.3 eGFR (calculated from the MDRD study equation) and eCrCl (calculated from the Cockcroft-Gault equation) are based on different parameters and may not yield comparable results. If eCrCl result is absurd, please check patient's height/weight. eGFR > 60 Chronic Kidney Disease: Estimated GFR < 60 mL/min/1.73m2 Severe Kidney Disease: Estimated GFR < 15 mL/min/1.73m2 Glucose, Random 150 H 60-115 mg/dL CA 9.8 8.4-10.2 mg/dL Total Bili 0.2 0.0-1.0 mg/dL AST (GOT) 19 5-37 U/L ALT (GPT) 16 0-40 U/L Protein, Total 8.5 H 6.5-8.0 g/dL Alb 3.9 3.5-5.0 g/dL Triglyceride 60 <150 mg/dL Desirable Triglyceride: less than 150 mg/dL Borderline High Triglyceride 150-199 mg/dL High Triglyceride: 200-499 mg/dL Very High Triglyceride: greater than or equ 05/30/24 05/30/24 05/30/24 09:47 11:09 16:30 Creatinine 0.85 Estim Creat Clear Calc 78.5 Estimated GFR > 60 POC Glucose 180 H 161 H 05/30/24 05/31/24 05/31/24 19:54 06:31 10:59 Creatinine Estim Creat Clear Calc Estimated GFR POC Glucose 264 H 122 H 247 H 05/31/24 05/31/24 06/01/24 16:01 20:45 06:26 Creatinine Estim Creat Clear Calc Estimated GFR POC Glucose 111 209 H 108 06/01/24 06/01/24 06/01/24 11:31 16:18 20:26 Creatinine Estim Creat Clear Calc Estimated GFR POC Glucose 175 H 169 H 157 H 06/02/24 06/02/24 06/02/24 06:50 11:23 16:30 Creatinine Estim Creat Clear Calc Estimated GFR POC Glucose 96 165 H 101 06/02/24 06/03/24 06/03/24 18:43 06:42 11:31 Creatinine Estim Creat Clear Calc Estimated GFR POC Glucose 194 H 85 128 H 06/03/24 06/03/24 06/04/24 16:14 18:57 06:37 Creatinine Estim Creat Clear Calc Estimated GFR POC Glucose 226 H 258 H 114 06/04/24 06/04/24 06/04/24 11:20 16:33 20:46 Creatinine Estim Creat Clear Calc Estimated GFR POC Glucose 242 H 79 185 H 06/05/24 06/05/24 06/05/24 06:28 10:58 16:15 Creatinine Estim Creat Clear Calc Estimated GFR POC Glucose 131 H 180 H 112 06/05/24 06/06/24 06/06/24 20:42 06:34 08:24 Creatinine 0.79 Estim Creat Clear Calc 82.9 Estimated GFR > 60 POC Glucose 271 H 96 Imaging Diagnostic Imaging Impressions Head CT 05/27/24 15:19 IMPRESSION: No acute intracranial abnormalities. Chronic changes as discussed. Electronically signed by: Robbie Francisco MD 05/27/2024 04:01 PM [facility] DS: Summary Hospital Course Hospital Course: Patient: Perez Juarez MR#: [id number] : 1960 Acct:[id number] Age/Sex: 64 / M Loc: [facility] 515-[address]: Shaun Mckeon MD cc: Dale Bradshaw MD; Grace Moralez NP~ HPI Date of Service: 05/23/24 Chief Complaint: Decompensation/SI Sources of Information: patient interviewed, chart reviewed and crisis/core team assessment reviewed HPI Subjective Notes: Section 12B Narrative: Patient is a 64-year-old male with history of schizoaffective disorder who was brought in by ambulance from his retirement due to putting a knife to his neck unprovoked secondary to increased anxiety. Per crisis report, patient was brought in by ambulance from retirement for putting a knife to his neck. He was in the ED previously for agitation, head banging and suicidal ideation. patient reports feeling anxious and not sleeping well. He states that he was anxious to a point of where he used a cord to wrap around his neck to commit suicide. However he did deny SI/HI/AH, but reports visual hallucinations. Patient presented calm and cooperative and adamantly denied SI/HI and hallucinations. He reports severe anxiety that caused him to wrap a cord around himself. During admission assessment, oriented to self. Patient believes that he is either in long-term or another retirement; despite being reoriented multiple times. Slurred and mumbled speech; difficult to understand at times. Confused. Anxious; some lability. When asked how he is feeling, patient stated, I love everybody. I'm good so far. I have calmed down. I have feelings off and on of killing myself . patient reports that he sometimes sees things that are not there . However denies VH at this time. Denies SI/HI/VH/AH. Patient continued to repeat, I love my brother , when responding to questions. Past Psychiatric History: History of schizoaffective disorder Medical Evaluation Reviewed: Yes [facility] Medical History (Updated 05/23/24 @ 16:22 by Grace Moralez NP) Schizoaffective disorder GERD (gastroesophageal reflux disease) Peripheral artery disease CAD (coronary artery disease) Insulin dependent type 2 diabetes mellitus Hyperlipidemia Family History: Unknown Social History: Unable to obtain Substance History: Unable to obtain Trauma History: Did not address Diagnostics Vital Signs (24Hr): BMI result Body Mass Index 19.5 Labs 05/23/24 09:51 document embedded image Labs: Laboratory Results - last 48 hr 05/23/24 09:51 Sodium 138 Potassium 4.3 Chloride 105 Carbon Dioxide 26 Anion Gap 11 L BUN 15 Creatinine 0.81 Estim Creat Clear Calc 82.3 Estimated GFR > 60 Random Glucose 150 H Estimat Average Glucose 192 Hemoglobin A1c % 8.3 H Calcium 9.8 Total Bilirubin 0.2 AST 19 ALT 16 Alkaline Phosphatase 105 Total Protein 8.5 H Albumin 3.9 Triglycerides 60 Cholesterol 133 LDL Cholesterol, Calc 64 HDL Cholesterol 57 TSH 1.07 Meds/Allergies Meds Home Medications Medication Instructions Recorded Confirmed Type acetaminophen 325 mg tablet 650 mg PO Q6H PRN Pain 05/23/24 05/23/24 History aluminum-mag hydroxide-simethicone 30 ml PO Q4H PRN Stomach Upset 05/23/24 05/23/24 History 200 mg-200 mg-20 mg/5 mL oral susp atorvastatin 40 mg tablet 40 mg PO DAILY 05/23/24 05/23/24 History bisacodyl 10 mg rectal suppository 10 mg NJ DAILY PRN Constipation 05/23/24 05/23/24 History cilostazol 100 mg tablet 100 mg PO BID 05/23/24 05/23/24 History docusate sodium 100 mg capsule 100 mg PO BID 05/23/24 05/23/24 History empagliflozin 25 mg tablet 25 mg PO DAILY 05/23/24 05/23/24 History (Jardiance) gabapentin 300 mg capsule 300 mg PO DAILY 05/23/24 05/23/24 History gabapentin 300 mg capsule 300 mg PO DAILY PRN Neuropathy 05/23/24 05/23/24 History gabapentin 300 mg capsule 600 mg PO BEDTIME 05/23/24 05/23/24 History glipizide 10 mg tablet 5 mg PO DAILY 05/23/24 05/23/24 History insulin aspart U-100 100 unit/mL See Protocol subcut TIDAC 05/23/24 05/23/24 History subcutaneous solution (Novolog U-100 Insulin aspart) insulin glargine 100 unit/mL 10 unit subcut DAILY 05/23/24 05/23/24 History subcutaneous solution (Lantus U-100 Insulin) hemiar-ecozeipk-riuvzqj 2 cap PO TID 05/23/24 05/23/24 History 3,000-9,500-15,000 unit capsule, delayed rel (Creon) magnesium hydroxide 400 mg/5 mL 30 ml PO DAILY PRN Constipation 05/23/24 05/23/24 History oral suspension (Milk of Magnesia) mirtazapine 7.5 mg tablet 7.5 mg PO BEDTIME 05/23/24 05/23/24 History naloxone 4 mg/actuation nasal spray 4 mg intranasal Q2M PRN Opioid 05/23/24 05/23/24 History Overdose ondansetron 4 mg disintegrating 4 mg PO Q6H PRN Nausea And Vomiting 05/23/24 05/23/24 History tablet pantoprazole 40 mg tablet,delayed 40 mg PO MOWEFR 05/23/24 05/23/24 History release polyethylene glycol 3350 17 gram 17 g PO DAILY 05/23/24 05/23/24 History oral powder packet risperidone 1 mg disintegrating 1 mg PO BID 05/23/24 05/23/24 History tablet sennosides 8.6 mg tablet (senna) 17.2 mg PO DAILY 05/23/24 05/23/24 History sitagliptin phosphate 50 1 tab PO BID 05/23/24 05/23/24 History mg-metformin 1,000 mg tablet (Janumet) sodium phosphates 19 gram-7 118 ml NJ DAILY PRN Constipation 05/23/24 05/23/24 History gram/118 mL enema (Fleet Enema) trazodone 50 mg tablet 50 mg PO DAILY 05/23/24 05/23/24 History trazodone 50 mg tablet 250 mg PO BEDTIME 05/23/24 05/23/24 History Allergies Allergies Allergy/AdvReac Type Severity Reaction Status Date / Time No Known Allergies Allergy Verified 05/23/24 09:19 Mental Status Exam Mental Status Exam Patient Appearance: Disheveled Patient Orientation: Person Level of Consciousness: Awake Patient Behavior: Cooperative, Anxious, Confused and Good Eye Contact Mood Description: Anxious Affect Description: Anxious Patient Cognition Impaired: Yes Ability to Follow Directions: Fair Speech Pattern: Slurred, Garbled and Mumbled Hallucinations: None Thought Process: Confusion Assessment & Plan Assessment & Plan (1) Schizoaffective disorder: Status: Acute Code(s): F25.9 - Schizoaffective disorder, unspecified Plan Patient is a 64-year-old male with history of schizoaffective disorder who was brought in by ambulance from his retirement due to putting a knife to his neck unprovoked secondary to increased anxiety. Plan: 12B 1:1 safety checks Continue home medications Obtain collateral Discharge planning Patient educated on: other (unable to educate at this time) Reason for continued inpatient stay Substantial Risk for: med/psych decompensation Statement Statement: I have reviewed the history and physical and performed a pertinent examination on my patient. No changes have occurred unless specified. If the History and Physical was not performed prior to admission, the Hospitalist's service will be consulted for completing the admission physical. Time Spent With Patient Time: Total time managing care of this patient today _60___ minutes. Dictated By: Grace Moralez NP Signed By: <Electronically signed by Grace Moralez> 05/23/24 1623 <Electronically signed by Dale Bradshaw MD> 05/23/242010 <Electronically signed by Dale Bradshaw MD> 05/23/242010 DD/ 1440 TD/TT: 05/23/24 1440 [employer] Specialist: HOSPITAL COURSE THE PATIENT WAS ADMITTED TO THE [facility] secondary to increased paranoia and thoughts of suicide while he was at his long-term care placement. The patient was initially admitted to 5th floor adult Psychiatry and was later transferred for what is seem to be more appropriate care on the geriatric psychiatry unit. Patient did have noted cognitive impairment he was initially admitted on a section 12 B and he has a healthcare proxy that is affirmed he was eventually changed to conditional voluntary. The patient was quite fearful paranoid on admission hearing people say negative things about him and Risperdal was increased to 2 mg b.i.d. Montague was 4/30. Head CT scan showed no evidence of any acute changes. Patient did not make any threatening statements or engage in any self-harming or threatening behavior while he was on the psychiatric units. The patient responded to scheduled Haldol 5 mg at bedtime Risperdal 2 mg twice a day and olanzapine was a p.r.n. 2.5 mg p.o. t.i.d. p.r.n. Patient was visible in the milieu was able to ask to leave wanting to be discharge. He had significant cognitive limitations did engage with others in the community there was no aggression toward others or himself Status at Discharge Cognitive/behavioral status at discharge: Patient knew his name was aware that he was going to be discharged. He was alert and cooperative Functional status at discharge: wheelchair bound Overall status at discharge: patient is progressing back to baseline Time Spent with Patient Time attestation: Total time managing care of this patient today ____ minutes. Discharge Plan Discharge Anticipated Discharge Date/Time: 06/06/24 11:00 Patient Disposition: Xfer LT Discharge Diagnosis: schizoaffective dx cognitive dx nos whie matter changes vascular changes carotid sinus vert artery ? autism spectrum diabetes mellitus hx lacunar infarct on ct head Referrals: [facility] [Other] - 06/06/24 11:00 am (You will head back to [facility] on 06/06/24 at 11:00 AM. When you return they will set appointments for you to see your therapist Neli and your psychiatrist Arianna. Your niece Telesha has been called and informed that you will be leaving on .) Discharge Medications: New haloperidol 5 mg Tablet 5 mg PO BEDTIME 30 Days Qty: 30 0RF olanzapine 2.5 mg Tablet 2.5 mg PO TID PRN (Reason: agitation) 30 Days Qty: 90 0RF risperidone 2 mg Tablet 2 mg PO BID 30 Days Qty: 60 0RF lorazepam 1 mg Tablet 1 mg PO BEDTIME 30 Days Qty: 30 0RF Continued insulin glargine [Lantus U-100 Insulin] 100 unit/mL solution 10 unit subcut DAILY glipizide 10 mg tablet 5 mg PO DAILY insulin aspart U-100 [Novolog U-100 Insulin aspart] 100 unit/mL solution See Protocol subcut TIDAC Protocol: Insulin Correction Scale Less than or equal to 110 ---- Give (units): 0 111 to 150 Give (units): 0 151 to 200 Give (units): 2 201 to 250 Give (units): 4 251 to 300 Give (units): 6 301 to 350 Give (units): 8 Greater than 350 Give (units): 10 Call MD if Blood Glucose > : 350 pantoprazole 40 mg tablet,delayed release (DR/EC) 40 mg PO JUJU Garcia 3,000-9,500- 15,000 unit capsule,delayed release(DR/EC) 2 cap PO TID Jardiance 25 mg tablet 25 mg PO DAILY sennosides [senna] 8.6 mg Tablet 17.2 mg PO DAILY acetaminophen 325 mg Tablet 650 mg PO Q6H PRN (Reason: Pain) polyethylene glycol 3350 17 gram Powder In Packet 17 g PO DAILY magnesium hydroxide [Milk of Magnesia] 400 mg/5 mL Suspension 30 ml PO DAILY PRN (Reason: Constipation) bisacodyl 10 mg Suppository 10 mg NJ DAILY PRN (Reason: Constipation) Fleet Enema 19-7 gram/118 mL Enema 118 ml NJ DAILY PRN (Reason: Constipation) docusate sodium 100 mg Capsule 100 mg PO BID alum-mag hydroxide-simeth 200-200-20 mg/5 mL Suspension 30 ml PO Q4H PRN (Reason: Stomach Upset) Rx Instructions: administer between meals and at bedtime ondansetron 4 mg Tablet,Disintegrating 4 mg PO Q6H PRN (Reason: Nausea And Vomiting) naloxone 4 mg/actuation [place],Non-Aerosol 4 mg INTRANASAL Q2M PRN (Reason: Opioid Overdose) Rx Instructions: spray 1 dose into ONE nostril; alternate nostrils w each dose until help arrives atorvastatin 40 mg tablet 40 mg PO DAILY 30 Days Qty: 30 0RF cilostazol 100 mg tablet 100 mg PO BID 30 Days Qty: 60 0RF gabapentin 300 mg capsule 600 mg PO BEDTIME 30 Days Qty: 60 0RF gabapentin 300 mg capsule 300 mg PO DAILY PRN (Reason: Neuropathy) 30 Days Qty: 30 0RF gabapentin 300 mg capsule 300 mg PO DAILY 30 Days Qty: 30 0RF Janumet 50-1,000 mg tablet 1 tab PO BID 30 Days Qty: 30 0RF Discontinued trazodone 50 mg tablet 50 mg PO DAILY trazodone 50 mg tablet 250 mg PO BEDTIME risperidone 1 mg tablet,disintegrating 1 mg PO BID mirtazapine 7.5 mg tablet 7.5 mg PO BEDTIME Discharge Orders: Discharge Order (Routine); Ordered 06/06/24 Ordered By: Dale Bradshaw Diet: Diabetic diet Activity on Discharge: needs assist Stand Alone Forms: Patient Portal Discharge page Print Language: Guyanese Care Plan Goals: no si decrease psychotic preoccupation stabilize mood Health Concerns: see above diabetes mellitis hx lacunar infarcts see head ct Plan of Treatment: antipsychotic medication haldol /risperadol/ olanzapine prn monitor for si or unsafe behavior cont medication for diabetes hyperlipedemia Assessment: pt with some anxiety in behavioral control no si denies current pi Discharge Date/Time: 06/06/24 11:30
== END 2024-06-06 11:30 | DRG 885 ==
LOC: HO.PM5 05-24 08:03 → HO.PGERI 05-24 13:49
PROVIDERS: Registered Nurse; Admitting Provider Psychiatry & Neurology Psychiatry; Visit Provider Social Worker
DX: F25.9 Schizoaffective disorder, unspecified (principal); R45.851 Suicidal ideations; I25.10 Atherosclerotic heart disease of native coronary artery without angina pectoris; F84.0 Autistic disorder; E11.42 Type 2 diabetes mellitus with diabetic polyneuropathy; K21.9 Gastro-esophageal reflux disease without esophagitis; E78.5 Hyperlipidemia, unspecified; Z79.4 Long term (current) use of insulin; Z79.84 Long term (current) use of oral hypoglycemic drugs; Z79.899 Other long term (current) drug therapy
CPT/HCPCS: 36415; 70450; 80053; 80061; 82565; 82947; 83036; 83540; 84443; 93005

== ENCOUNTER 2024-05-23 08:13 | Outpatient (BNV) | payer OTHER, SELFPAY | END 2024-05-23 12:32 | PROVIDERS: Admitting Provider Psychiatry & Neurology Psychiatry; Visit Provider Internal Medicine Cardiovascular Disease | DX: I49.9 Cardiac arrhythmia, unspecified (principal) | CPT/HCPCS: 93010 ==

== ENCOUNTER → 2024-05-23 08:13 | Outpatient (BNV) | payer OTHER, SELFPAY | PROVIDERS: Admitting Provider Psychiatry & Neurology Psychiatry; Visit Provider Psychiatry & Neurology Psychiatry | DX: F25.9 Schizoaffective disorder, unspecified (principal) | CPT/HCPCS: 99231; 99238 ==

== ENCOUNTER → 2024-05-23 08:13 | Outpatient (BNV) | payer OTHER, SELFPAY | PROVIDERS: Admitting Provider Psychiatry & Neurology Psychiatry; Visit Provider Student in an Organized Health Care Education/Training Program | DX: Z00.8 Encounter for other general examination (principal) | CPT/HCPCS: 99222 ==

== ENCOUNTER → 2024-05-23 08:13 | Outpatient (BNV) | payer OTHER, SELFPAY | PROVIDERS: Admitting Provider Psychiatry & Neurology Psychiatry; Visit Provider Registered Nurse | DX: F25.9 Schizoaffective disorder, unspecified (principal) | CPT/HCPCS: 90792 ==